=== PATIENT | female | born 1995 | race Caucasian/White ===

== ENCOUNTER → 2018-04-10 | Outpatient (CLI) | payer OTHER | LOC: M LRY 19:23 | DX: S99.921A Unspecified injury of right foot, initial encounter (principal); X58.XXXA Exposure to other specified factors, initial encounter; Y92.9 Unspecified place or not applicable; Y93.9 Activity, unspecified; Y99.9 Unspecified external cause status | CPT/HCPCS: 73630; G0463 ==

== ENCOUNTER 2019-10-10 15:18 | Inpatient (IN) | payer OTHER ==
[2019-10-10] VITALS (8 sets, daily range): BP systolic 109–131; BP diastolic 50–66
[~2019-10-10] VITALS: Ht 157.5 cm; Wt 104.5 kg
[2019-10-10] MEDS ORDERED: PRIMROSE OIL PO (15:40)
[2019-10-10] MEDS ORDERED: PRENTAB9 PO (15:40)
[2019-10-10] MEDS ORDERED: TUMS750C5 PO (15:41)
[2019-10-10] MEDS ORDERED: LACTATED RINGER'S 1000 ML IV STA (16:25)
[2019-10-10] MEDS ORDERED: LR 1,000 ML IV SCH (16:25)
[2019-10-10] MEDS ORDERED: SIMETHICONE 80 MG CHEW TAB PO PRN (16:30)
[2019-10-10] MEDS ORDERED: MOM 30ML SUSPENSION UDC PO PRN (16:30)
[2019-10-10 16:59] LABS: BASO % 0.2 % (0.0-1.0); EOS % 0.3 % (0.0-3.0); HEMATOCRIT 38.2 % (36.0-47.0); HEMOGLOBIN 12.2 g/dl (12.0-15.5); LYMPH # 1.7 10^3/uL (1.5-5.0); LYMPH % 16.9 % (24.0-44.0); MEAN CORPUSCULAR HEMOGLOBIN 26.8 pg (27.0-33.0); MEAN CORPUSCULAR HGB CONC 31.9 g/dl (32.0-36.5); MEAN CORPUSCULAR VOLUME 83.8 fl (80.0-96.0); MONO # 0.7 10^3/uL (0.0-0.8); MONO % 6.9 % (0.0-5.0); NEUTROPHILS # 7.4 10^3/uL (1.5-8.5); NEUTROPHILS % 75.1 % (36.0-66.0); PLATELET COUNT, AUTOMATED 185 10^3/uL (150-450); RED BLOOD COUNT 4.56 10^6/uL (4.00-5.40); WHITE BLOOD COUNT 9.9 10^3/uL (4.0-10.0)
[2019-10-10] MEDS ORDERED: OXYTOCIN DRIP 30 UNITS in IV 1 EA IV SCH (17:00)
[2019-10-10] MEDS ORDERED: PROMETHAZINE INJ 25 MG/ML VIAL (J2550) IV ONE (17:00)
[2019-10-10] MEDS ORDERED: BUTORPHANOL 2 MG/ML INJ (J0595) IV PRN (17:00)
--- NOTE | 2019-10-10 17:05 | HPEPDOC ---
Obstetrical History & Physical General Date of Admission Oct 10, 2019 at 15:18 History of Present Illness The patient is a 24-year-old female 39.3wks by redating 9wks US admitted with a reason for visit of Induction. Having irregular contractions. No loss of fluid. No bleeding or discharge. Good movement. Normal blood sugars. Diabetes controlled with diet past 2wks. 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) SUPPORT REPRESENTATIVE History: No pertinent history Past Medical History Medical History none Surgical History: Denies/None Family History Significant Family History: Other (daughters disorder) Social History Marital Status: Psychosocial History: No pertinent psych hx * Smoker: non-smoker Alcohol: Denies Drugs: denies Abuse Violence Screening Have you been hit/kicked/slapp: No Have you been sexually assault: No Imunizations Tdap status: current Influenza Status: current Allergies Coded Allergies: No Known Allergies (Unverified , 10/10/19) Medications Scheduled No.137/Iron/Folic Acd ( Vitamin Tablet) 1 Each Tablet, 1 TAB PO DAILY [[place] Oil] , 1 TAB PO DAILY Scheduled PRN Calcium Carbonate (Tums) 300 Mg Tab.chew, 500 MG PO Q6HP PRN for INDIGESTION Physical Examination Physical Examination GENERAL: Alert and oriented times three. FETUS: Is vertex (VTX) by sterile vaginal examination (SVE). EFW 3200gm EXTREMITIES: No edema. Laboratory Data 24H LABS Laboratory Tests 2 10/10/19 15:50: Serology Scanned Report Hepatitis B Testing Pertinent Laboratoy Data Blood Type: O+ RBC Antibody Screen: Negative HIV: Negative Hepatitis B: Negative Rapid Plasma Reagin: Nonreactive Rubella: Immune Varicella: Immune Chlamydia/Gonorrhea: Negative Group B Streptococcus: Negative Diag/Inter Therapy [facility] genetics negatic Anatomy Ultrasound Ultrasound Date: Jun 21, 2019 Placenta Location: Anterior Normal Anatomy: Yes Placenta Previa: No Estimated Weight (grams): 713 Steroid Therapy Steroid Therapy: No Vaginal Examination Dilation: 3 cm Effacement: 80% Station: -2 Cervical Consistency: Soft Cervical Position: Posterior Presentation: Cephalic presentation Position: Vertex (occiput) Assessment Heart Rate (FHR): 140 Variability: Moderate Accelerations: Positive Decelerations: None Tocometer Contractions: Yes Frequency: irregular Multi-drug resistant Organism: No history of MDRO Assessment/Plan Assessment The patient is a 24-year-old female 39.3wks by redating 9wks US admitted with a reason for visit of Induction. Having irregular contractions. Admit for induction of labor and expect delivery by . Pain management per patient preference, which was discussed with her. I discussed risks of with patient of failure with section, distress, bleeding, infection, , vaginal or perineal or neighboring organ tear. Currently, fetus is re assuring. GBS is negative, no need for antibiotics. She will get FS q2hr and sliding scale insulin. Plan Admit and orient. Ambulance Assistant and consent. Diet: clear. Group B Streptococcus (GBS) negative. Labs and intravenous (IV) per unit protocol. Counseled on Pitocin and induction of labor (IOL). Lactated Ringers (LR): Bolus 500 mL, then at 125 mL/hr. Anticipate normal spontaneous delivery (). Pain management per patient. ISS and q2hr FS. Marie Joaquin MD Oct 10, 2019 17:05
[2019-10-10] MEDS ORDERED: INSUH10VL SC (17:11)
[2019-10-10] MEDS ORDERED: GLUCOSE 4 GM CHEW TABLET PO PRN (17:30)
[2019-10-10] MEDS ORDERED: HumaLOG INSULIN (NovoLOG) PER UNIT SC SCH ×2 (17:30)
[2019-10-10] MEDS ORDERED: DEXTROSE 50% 50 ML SYRINGE IV PRN (17:30)
[2019-10-10] MEDS ORDERED: GLUCAGON FOR INJ 1 MG VIAL (J1610) SC PRN (17:30)
[2019-10-10] MEDS: HumaLOG INSULIN (NovoLOG) PER UNIT SC SCH (17:48)
[2019-10-10] MEDS: LR 1,000 ML IV SCH (21:11)
[2019-10-11] VITALS (16 sets, daily range): BP systolic 93–140; BP diastolic 50–81
[2019-10-11] MEDS ORDERED: FENTANYL 2MCG/ML ROPIVACAINE 0.2% IN 0.9% NACL 100ML IVBAG As Ordered ONE (00:29)
[2019-10-11] MEDS ORDERED: REFRIGERATOR IV KEYS XX PRN (00:55)
[2019-10-11] MEDS ORDERED: NALOXONE INJ 0.4 MG/1 ML VIAL (J2310) IV PRN (00:55)
[2019-10-11] MEDS ORDERED: ONDANSETRON 4MG/2ML VIAL (J2405) IV PRN (00:55)
[2019-10-11] MEDS ORDERED: diphenhydrAMINE INJ 50MG/ML VIAL (J1200) IV PRN (00:55)
[2019-10-11] MEDS ORDERED: ePHEDrine SULFATE 25 MG/5 ML(5MG/ML) SYRINGE IV PRN (00:55)
[2019-10-11] MEDS ORDERED: EPIDURAL COMMENT XX SCH (00:55)
[2019-10-11] MEDS ORDERED: FENTANYL/ROPIVACAINE/NACL BAG 100 ML EPIDURAL SCH (00:55)
[2019-10-11] MEDS ORDERED: EPIDURAL/PCA KEYS XX PRN (00:55)
[2019-10-11] MEDS: LR 1,000 ML IV SCH ×3 (01:41→17:00)
--- NOTE | 2019-10-11 03:36 | DNPDOC ---
[facility] Delivery Note Delivery Note DATE OF DELIVERY: 10/11/2019 PREDELIVERY DIAGNOSIS: 39 4/7 weeks' gestation and labor. POST DELIVERY DIAGNOSIS: Delivered. PROCEDURE: Spontaneous vaginal delivery LEAD GENERATION REPRESENTATIVE: [Jemal ANESTHESIA: Epidural. ESTIMATED BLOOD LOSS: 200 mL. FINDINGS: 7 pound 1 ounce (3200gm) Female infant, Score 9/9, nuchal cord times 0. DELIVERY SUMMARY: Patient is a 24-year-old 2 now para 2 who was admitted to labor and delivery for active labor for 8hours. Patient SROM clear around 02:35. Baby head was delivered without difficulty over intact perineum in GINGER position at 03:17. The nose and mouth were bulb suctioned. No nuchal cord was noted. The shoulders were then delivered without difficulty. Cord was then clamped x2 and cut. Infant was handed on mother's belly. Pitocin bolus was started. Perineum was inspected and found to have no laceration. The placenta was then delivered at 03:24 spontaneously intact. Cord had a 3 vessel cord. EBL was 200mL. The vagina and perineum were reinspected and no further lacerations were found and hemostasis was good. Fundus was firm. Patient tolerated delivery well. Marie Joaquin MD Oct 11, 2019 03:36
[2019-10-11] MEDS ORDERED: METHYLERGONOVINE MALEATE 0.2 MG TAB PO PRN (03:45)
[2019-10-11] MEDS ORDERED: IBUPROFEN 600 MG TAB PO PRN (03:45)
[2019-10-11] MEDS ORDERED: DIBUCAINE 1% OINTMENT 30GM TOP PRN (03:45)
[2019-10-11] MEDS: HumaLOG INSULIN (NovoLOG) PER UNIT SC SCH ×2 (06:10)
[2019-10-11] MEDS: DOCUSATE SODIUM 100 MG CAP PO SCH ×2 (08:34→20:12)
[2019-10-11] MEDS: IBUPROFEN 800 MG TAB PO PRN ×2 (08:34→17:04)
[2019-10-11] MEDS: PRENATAL VITAMINS CHEWABLE TABLET PO SCH (08:34)
[2019-10-11] MEDS: ACETAMINOPHEN 500 MG TAB PO PRN ×2 (12:38→20:13)
[2019-10-12] MEDS: IBUPROFEN 800 MG TAB PO PRN ×2 (01:27→09:27)
[2019-10-12 05:48] VITALS: BP 113/55
[2019-10-12] MEDS: PRENATAL VITAMINS CHEWABLE TABLET PO SCH (09:25)
[2019-10-12] MEDS: DOCUSATE SODIUM 100 MG CAP PO SCH (09:25)
--- NOTE | 2019-10-12 10:20 | IPNPDOC ---
Progress Note Date of Service: Oct 12, 2019 Day#: 1 Progress Note SUBJECT: She is a 24-year-old 2 now Para 2002 status post uncomplicated spontaneous vaginal delivery at 39 4/7 weeks' at approximately 03:30 hours on 10/11/2019 of a Girl 3200 grams with post vaginal laceration and repair, doing well day # 1. She has been ambulating, voiding spontaneously without issue and tolerating regular diet. Breast feeding without issue. Reports lochia is like a normal period. Patient is ambulating well. Reports some cramping with . Denies any pain. Voiding and stooling without difficulty. OBJECTIVE: VITAL SIGNS: Within normal limits, afebrile. Alert and oriented times three. Breath sounds clear to auscultation. Heart rate: Regular rate and rhythm, no murmurs, rubs or gallops. Abdomen: Fundus firm at U-2. Soft, NTTP. Minimal lochia. ASSESSMENT: She is a 24-year-old 2 now Para 2002 status post uncomplicated spontaneous vaginal delivery after IOL for GDMA2 doing well on day 1. Vitals within normal limits, afebrile, hemodynamically stable with no evidence of infection. PLAN: 1. Discharge to [place] today. 2. Tylenol and Motrin for pain. 3. Encourage breast feeding and ambulation. 4. Routine PP visit in 6 weeks in clinic. 5. Discussed return precautions at length. VS, I&O, 24H, Fishbone Vital Signs/I&O Vital Signs Date Time Temp Pulse Resp B/P (MAP) Pulse Ox O2 Delivery O2 Flow Rate FiO2 10/12/19 05:48 97.7 69 16 113/55 (74) 100 Room Air Marie Joaquin MD Oct 12, 2019 10:20
[2019-10-12] MEDS ORDERED: DOCU100C16 PO (10:42)
[2019-10-12] MEDS ORDERED: DIBU10OI TOP (10:42)
[2019-10-12] MEDS ORDERED: IBUP80TA PO (10:42)
== END 2019-10-12 11:00 | disposition home or self-care (01) | DRG 807 ==
LOC: M LDI 15:18 → M OBS 10-11 05:05
PROVIDERS: ADMIT Obstetrics & Gynecology; ATTEND Obstetrics & Gynecology
PROC: 3E033VJ Introduction of Other Hormone into Peripheral Vein, Percutaneous Approach (ICD-10-PCS; 2019-10-10)
PROC: 10E0XZZ Delivery of Products of Conception, External Approach (ICD-10-PCS; principal; 2019-10-11)
DX: O24.420 Gestational diabetes mellitus in childbirth, diet controlled (principal); Z37.0 Single live birth; Z3A.39 39 weeks gestation of pregnancy